=== PATIENT | female | born 1970 | race Caucasian/White ===

== ENCOUNTER 2019-11-26 10:12 | Emergency (ER) | payer OTHER ==
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
[2019-11-26 10:51] VITALS: BP 122/69; PULSE 70
--- NOTE | 2019-11-26 11:56 | CR ---
Chest and right ribs: Frontal view of the chest was obtained as well as 3 views of the right ribs. Comparison: No previous study. Heart size at the upper limits of normal. Upper mediastinum is normal. Lungs are clear with no acute parenchymal change. Surgical clips are seen from prior cholecystectomy. No discrete right-sided rib fracture is appreciated. Degenerative endplate spurring is noted within the spine. Impression: 1. Findings as described above. 2. Nothing acute seen on frontal chest x-ray. 2. No discrete rib abnormality is appreciated. Diagnostic code #2 This report was dictated in MDT
--- NOTE | 2019-11-26 11:56 | CR ---
Left knee: AP, lateral and sunrise patellar views left knee were obtained. Slight medial joint space narrowing is seen. Lateral joint space is preserved. No joint effusion is seen. No acute fracture or other bony abnormality is seen Impression: 1. Slight medial joint space narrowing. 2. Left knee study is otherwise unremarkable. Diagnostic code #2 This report was dictated in MDT
== END 2019-11-26 12:21 | disposition home or self-care (01) ==
LOC: MW.ED 10:12
DX: S83.92XA Sprain of unspecified site of left knee, initial encounter (principal); S20.211A Contusion of right front wall of thorax, initial encounter; E11.9 Type 2 diabetes mellitus without complications; I10 Essential (primary) hypertension; Z79.899 Other long term (current) drug therapy; Z88.0 Allergy status to penicillin; V29.9XXA Motorcycle rider (driver) (passenger) injured in unspecified traffic accident, initial encounter
CPT/HCPCS: 71101-26-RT; 71101-RT; 73562-26-LT; 73562-LT; 99284

== ENCOUNTER 2021-09-07 09:58 | Day surgery (SDC) | payer OTHER ==
[~2021-09-07 09:58] MED LIST: Lactated Ringers 1,000 ML IV SCH; Sodium Chloride 0.9% 10 ML Syringe FLUSH PRN; Sodium Chloride 0.9% 2.5 ML Syringe FLUSH PRN; Sodium Chloride 0.9% 20 ML SDV IV PRN
[2021-09-07] MEDS ORDERED: Lidocaine 1% 5 ML VIAL ONE (11:36)
[2021-09-07] MEDS ORDERED: fentaNYL 100 MCG/2 ML SDV ONE (11:37)
[2021-09-07] MEDS ORDERED: Propofol 200 MG/20 ML SDV ONE (11:37)
[2021-09-07 12:36] VITALS: PULSE 68
[2021-09-07 13:40] VITALS: BP 113/59
== END 2021-09-07 12:55 | disposition home or self-care (01) ==
LOC: MW.SDS 09:58
PROVIDERS: ATTEND Surgery
DX: Z12.11 Encounter for screening for malignant neoplasm of colon (principal); D12.3 Benign neoplasm of transverse colon; E11.9 Type 2 diabetes mellitus without complications; H54.7 Unspecified visual loss; K21.9 Gastro-esophageal reflux disease without esophagitis; I10 Essential (primary) hypertension; Z88.0 Allergy status to penicillin; Z98.84 Bariatric surgery status; Z79.899 Other long term (current) drug therapy; Z90.89 Acquired absence of other organs; Z90.49 Acquired absence of other specified parts of digestive tract; Z87.891 Personal history of nicotine dependence
CPT/HCPCS: 45380; J2704; J3010; J7120; 00812